=== PATIENT | male | born 1995 | race Hispanic/Latino ===

== ENCOUNTER 2022-07-17 20:48 | Emergency (ER) | payer SELFPAY ==
[~2022-07-17] VITALS: Ht 177.8 cm; Wt 77.1 kg
[2022-07-17] MEDS ORDERED: LIDOCAINE 1% 5ML-MPF INJ ONE (21:00)
[2022-07-17] MEDS ORDERED: CEPHALEXIN500 MG PO (21:13)
[2022-07-17] MEDS ORDERED: LIDOCAINE 1% 10 ML MULTIDOSE VIAL IJ ONE (21:23)
== END 2022-07-17 21:29 | disposition home or self-care (01) ==
LOC: ER 20:56
DX: L60.0 Ingrowing nail (principal); L03.032 Cellulitis of left toe; B35.1 Tinea unguium; B35.3 Tinea pedis
CPT/HCPCS: 99283